=== PATIENT | male | born 1970 | race Two or more races ===

== ENCOUNTER 2021-01-30 16:46 | Emergency (ER) | payer OTHER ==
[~2021-01-30] VITALS: Ht 167.6 cm; Wt 93.9 kg
[2021-01-30] MEDS ORDERED: ADVIL (18:33)
== END 2021-01-30 22:04 | disposition home or self-care (01) ==
LOC: ER 16:46
DX: U07.1 COVID-19 (principal); A49.3 Mycoplasma infection, unspecified site